=== PATIENT | female | born 1960 | race Caucasian/White ===

== ENCOUNTER 2018-08-27 14:20 | Day surgery (SDC) | payer OTHER ==
[2018-08-27] MEDS ORDERED: LIDOCAINE 2% JELLY 5 ML (16:37)
[2018-08-27] MEDS ORDERED: MIDAZOLAM 1 MG/ML 2 ML INJ (16:37)
[2018-08-27] MEDS ORDERED: PROPOFOL 20 ML (16:37)
[2018-08-27] MEDS ORDERED: ETOMIDATE 20 MG INJ (16:38)
== END 2018-08-27 21:14 | disposition home or self-care (01) ==
LOC: GIL 14:20
DX: K22.70 Barrett's esophagus without dysplasia (principal); K44.9 Diaphragmatic hernia without obstruction or gangrene; K29.00 Acute gastritis without bleeding
CPT/HCPCS: 43239; 88305; 88312; 88313